=== PATIENT | female | born 1965 | race Two or more races ===

== ENCOUNTER 2020-01-19 15:09 | Emergency (ER) | payer MEDICAID ==
[~2020-01-19] VITALS: Ht 165.1 cm; Wt 63.5 kg
[2020-01-19] MEDS ORDERED: ACETAMINOPHEN 325 MG TAB PO ONE (16:30)
[2020-01-19 16:39] VITALS: BP 100/55
== END 2020-01-19 18:37 | disposition home or self-care (01) ==
LOC: ER 15:09
DX: S62.317A Displaced fracture of base of fifth metacarpal bone, left hand, initial encounter for closed fracture (principal); Z88.0 Allergy status to penicillin; W01.0XXA Fall on same level from slipping, tripping and stumbling without subsequent striking against object, initial encounter; Y93.01 Activity, walking, marching and hiking; Y92.89 Other specified places as the place of occurrence of the external cause; Y99.8 Other external cause status
CPT/HCPCS: 29515; 73610; 73630

== ENCOUNTER 2023-09-08 10:26 | Emergency (ER) | payer MEDICAID ==
[~2023-09-08] VITALS: Ht 154.9 cm; Wt 58.6 kg
[2023-09-08 12:34] LABS: Basophils # (auto) 0 10 ^3/uL (0-0.2); Basophils % (auto) 0.3 % (0.0-2.0); Eosinophils # (auto) 0 10 ^3/uL (0-0.8); Eosinophils % (auto) 0.5 % (0.0-7.0); Hematocrit 39.2 % (36.0-46.0); Hemoglobin 13.1 g/dL (12.2-16.2); Lymphocytes # (auto) 1.1 10 ^3/uL (0.4-5.4); Lymphocytes % (auto) 20.9 % (10.0-50.0); Mean Corpuscular Hemoglobin 32.6 pg (28.0-32.0); Mean Corpuscular Hgb Conc. 33.5 g/dL (32.0-36.0); Mean Corpuscular Volume 97.1 fL (80.0-100.0); Monocytes # (auto) 0.4 10 ^3/uL (0-1.3); Monocytes % (auto) 7.2 % (0.0-12.0); Neutrophils # (auto) 3.8 10 ^3/uL (1.6-8.6); Neutrophils % (auto) 71.1 % (37.0-80.0); Red Blood Cells 4.03 10^6/uL (4.0-5.20); Red Cell Distribution Width 13.1 % (11.8-14.3); White Blood Cell 5.3 10^3/uL (4.4-10.8)
[2023-09-08 12:50] LABS: Alanine Aminotransferase 939 U/L (7-40); Albumin 4.6 g/dL (3.2-4.8); Alkaline Phosphatase 123 U/L (46-116); Anion Gap 7 (5-15); BUN/Creatinine Ratio 14.3 (10.0-20.0); Bilirubin, Total 1.6 mg/dL (0.2-1.0); Blood Urea Nitrogen 8 mg/dL (9-23); Calcium 9.9 mg/dL (8.7-10.4); Carbon Dioxide 27 mmol/L (20-30); Chloride 102 mmol/L (98-107); Glucose 110 mg/dL (74-106); Lipase 42 U/L (12-53); Potassium 4.3 mmol/L (3.5-5.1); Sodium 136 mmol/L (136-145)
[2023-09-08 12:51] LABS: Total Protein 8.7 g/dL (5.7-8.2)
[2023-09-08 13:01] LABS: Aspartate Aminotransferase 1257 U/L (13-40)
[2023-09-08] MEDS: SODIUM CHLORIDE 0.9% 500 ML IVB ONE (19:41)
[2023-09-08] MEDS: ONDANSETRON HCL 4 MG/2 ML VIAL IV ONE (19:55)
[2023-09-08] MEDS: PANTOPRAZOLE 40 MG/10 ML VIAL INJ IV ONE (19:55)
[2023-09-08 22:19] VITALS: BP 167/78; PULSE 62; RESP 16; TEMP 98; O2SAT 99
== END 2023-09-10 00:24 | disposition home or self-care (01) ==
LOC: ER 10:26
DX: K80.50 Calculus of bile duct without cholangitis or cholecystitis without obstruction (principal); R10.33 Periumbilical pain; E78.5 Hyperlipidemia, unspecified; Z88.8 Allergy status to other drugs, medicaments and biological substances
CPT/HCPCS: 36415; 74181; 76705; 80053; 83690; 85025; 93005; 96361; 96374; 96375; 99285; C9113; J2405; J7040